=== PATIENT | female | born 1985 | race Caucasian/White ===

== ENCOUNTER 2020-05-15 17:34 | Emergency (ER) | payer BC ==
[2020-05-15 17:55] VITALS: BP 146/80; PULSE 58; TEMP 97.9; BMI 21.4
[2020-05-15] MEDS ORDERED: SODIUM CHLORIDE 1,000 ML IV STA (18:13)
[2020-05-15 18:38] LABS: HEMATOCRIT 44.5 % (32.4-45.2); HEMOGLOBIN 15.6 GM/dl (10.7-15.3); MEAN CELL VOLUME 94.3 fl (80-96); MEAN PLT VOLUME 8.5 fl (7.5-11.1); PLATELET COUNT 231 K/MM3 (134-434); RBC 4.72 M/mm3 (3.60-5.2); WHITE BLOOD COUNT 6.3 K/mm3 (4.0-10.8)
[2020-05-15 18:39] LABS: BILIRUBIN,TOTAL 1.3 mg/dl (0.2-1); CALCIUM 9.3 mg/dl (8.5-10); CREATININE 0.7 mg/dl (0.55-1.3); TOT PROT 7.5 g/dl (6.4-8.2)
[2020-05-15 18:45] LABS: HCG,QUALITATIVE URINE Negative
[2020-05-15 19:41] LABS: PLATELET ESTIMATE ADEQUATE
== END 2020-05-15 20:05 | disposition home or self-care (01) ==
LOC: FER 17:34
PROC: 3E0337Z Introduction of Electrolytic and Water Balance Substance into Peripheral Vein, Percutaneous Approach (ICD-10-PCS; principal; 2020-05-15)
DX: R55 Syncope and collapse (principal); E86.0 Dehydration; W10.8XXA Fall (on) (from) other stairs and steps, initial encounter
CPT/HCPCS: 36415; 70450-TC; 72125-TC; 80053; 81003; 82550; 84443; 84484; 84703; 85025; 93005; 99285-25

== ENCOUNTER 2020-05-28 10:38 | Emergency (ER) | payer BC | END 2020-05-28 16:04 | disposition home or self-care (01) | LOC: JVIRT 10:38 | DX: Z11.52 Encounter for screening for COVID-19 (principal) | CPT/HCPCS: G2012-GT ==

== ENCOUNTER 2020-05-29 10:23 | Emergency (ER) | payer BC | END 2020-05-29 11:38 | disposition home or self-care (01) | LOC: JVIRT 10:23 | DX: Z20.822 Contact with and (suspected) exposure to COVID-19 (principal) | CPT/HCPCS: C9803; G2012-GT; U0003 ==